=== PATIENT | female | born 1990 | race American Indian/Alaskan Native ===

== ENCOUNTER 2017-12-13 08:38 | Emergency (ER) | payer MEDICAID ==
[2017-12-13 08:54] VITALS: BMI 23.9
[2017-12-13 08:55] VITALS: TEMP 98.8
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
[2017-12-13 09:18] LABS: PH,URINE 7.5 (4.7-8.0); URINE BILIRUBIN NEGATIVE (NEGATIVE); URINE BLOOD NEGATIVE (NEGATIVE); URINE GLUCOSE (UA) NEGATIVE (NEGATIVE); URINE LEUKOCYTE ESTERASE NEGATIVE Leu/uL (NEGATIVE); URINE NITRATE NEGATIVE (NEGATIVE); URINE PROTEIN NEGATIVE mg/dL (<30 mg/dL); URINE UROBILINOGEN 0.2 E.U./dL (<1 E.U./dL)
[2017-12-13 09:26] LABS: URINE APPEARANCE CLEAR (CLEAR); URINE COLOR YELLOW (YELLOW)
[2017-12-13 09:27] LABS: HCG,QUALITATIVE URINE NEGATIVE (NEGATIVE)
[2017-12-13 09:30] LABS: BASO # 0.02 K/mm3 (0.0-2.0); BASO % 0.4 % (0.0-3.0); EOS # 0.1 (0.0-0.7); EOS % 1.1 % (1.5-5.0); GRAN # 1.95 (1.4-6.5); GRAN % 41.8 % (50.0-68.0); HEMOGLOBIN 12.9 g/dL (12.0-16.0); LYMPH # 2.3 (1.2-3.4); LYMPH % 48.5 % (22.0-35.0); MEAN CORPUSCULAR HEMOGLOBIN 29.5 pg (25.0-35.0); MEAN CORPUSCULAR HGB CONC 32.7 g/dl (31.0-37.0); MEAN PLATELET VOLUME 11.3 fl (7.0-11.0); MONO # 0.4 (0.1-0.6); MONO % 8.2 % (1.0-6.0); RBC 4.38 10^6/uL (3.5-6.1); RED CELL DISTRIBUTION WIDTH 14.6 % (11.5-14.5); WHITE BLOOD COUNT 4.7 10^3/ul (4.5-11.0)
[2017-12-13 09:38] LABS: BARBITURATES, UR NEGATIVE (NEGATIVE); BENZODIAZEPINES, UR NEGATIVE (NEGATIVE); OPIATES, UR NEGATIVE (NEGATIVE); PHENCYCLIDINE, UR NEGATIVE (NEGATIVE)
[2017-12-13 09:42] LABS: ALB/GLOB RATIO 1.4 (1.1-1.8); ALBUMIN 4.8 g/dL (3.0-4.8); ALT/SGPT 33 U/L (7-56); AST/SGOT 26 U/L (14-36); BLOOD UREA NITROGEN 14 mg/dL (7-21); CALCIUM 10.3 mg/dL (8.4-10.5); GFR AFRICAN-AMERICAN > 60; GFR NON-AFRICAN AMERICAN > 60
[2017-12-13 09:43] LABS: ACETAMINOPHEN < 10.0 ug/ml (10.0-20.0); SALICYLATE < 1 mg/dL (2.0-20.0)
--- NOTE | 2017-12-13 10:07 | CT ---
PROCEDURE: CT HEAD WITHOUT CONTRAST. HISTORY: KATE COMPARISON: None available. TECHNIQUE: Axial computed tomography images were obtained through the head/brain without intravenous contrast. Radiation dose: Total exam DLP = 769.33 mGy-cm. This CT exam was performed using one or more of the following dose reduction techniques: Automated exposure control, adjustment of the mA and/or kV according to patient size, and/or use of iterative reconstruction technique. FINDINGS: HEMORRHAGE: No intracranial hemorrhage. BRAIN: No mass effect or edema. No atrophy or chronic microvascular ischemic changes. VENTRICLES: Unremarkable. No hydrocephalus. CALVARIUM: Unremarkable. PARANASAL SINUSES: Unremarkable as visualized. No significant inflammatory changes. MASTOID AIR CELLS: Unremarkable as visualized. No inflammatory changes. OTHER FINDINGS: None. IMPRESSION: Normal CT of the Head. No intracranial mass, hemorrhage or evidence of acute infarct.
[2017-12-13 11:27] VITALS: BP 124/72; PULSE 84; RESP 16; O2SAT 19
--- NOTE | 2017-12-14 16:23 | CARD ---
APPROVED REPORT EKG Measurement Heart [id number] <Conclusion> Normal sinus rhythm with sinus arrhythmia Nonspecific ST abnormality Abnormal ECG
== END 2017-12-13 11:27 | disposition home or self-care (01) ==
LOC: MERGE 08:38 → ED 08:38
DX: F31.9 Bipolar disorder, unspecified (principal); G47.00 Insomnia, unspecified; R51 Headache

== ENCOUNTER 2018-11-18 09:48 | Emergency (ER) | payer MEDICAID, OTHER ==
[2018-11-18 09:58] VITALS: BMI 24.0
--- NOTE | 2018-11-18 10:56 | ED PDOC ---
Arrival/HPI <Monica Coley - Last Filed: 11/18/18 11:22> - General Historian: Patient - History of Present Illness Narrative History of Present Illness (Text): 11/18/18 10:49 28 y/o F with PMHx of bipolar disorder, anxiety presents to ED with complaints of occipital headache that's been ongoing for about 2 weeks since she received depo-provera shot. She reports headache is not the worst headache of her life. She denies trauma to the head. She denies any neurological symptoms including numbness, tingling, weakness. She also reports she was recently evaluated for thyroid problems. No suicidal or homicidal ideation. She denies fevers, chills, dizziness, chest pain, palpitations, shortness of breath, n/v/c/d/dysuria. Time/Duration: Prior to Arrival Symptom Onset: Gradual <Vignesh Orellana - Last Filed: 11/18/18 15:10> - General Chief Complaint: Headache Past Medical History - Provider Review Nursing Documentation Reviewed: Yes - Infectious Disease Hx of Infectious Diseases: None - Cardiac Hx Cardiac Disorders: No - Pulmonary Hx Respiratory Disorders: Yes Hx Asthma: Yes - Neurological Hx Neurological Disorder: No - HEENT Hx HEENT Disorder: No - Renal Hx Renal Disorder: No - Endocrine/Metabolic Hx Endocrine Disorders: No - Hematological/Oncological Hx Blood Disorders: No - Integumentary Hx Dermatological Disorder: No - Musculoskeletal/Rheumatological Hx Musculoskeletal Disorders: No - Gastrointestinal Hx Gastrointestinal Disorders: No - Genitourinary/Gynecological Hx Genitourinary Disorders: No - Psychiatric Hx Psychophysiologic Disorder: Yes Hx Anxiety: Yes Hx Bipolar Disorder: Yes Hx Depression: Yes Hx Substance Use: Yes - Anesthesia Hx Anesthesia: No - Suicidal Assessment Feels Threatened In Home Enviroment: No <Vignesh Orellana - Last Filed: 11/18/18 15:10> Family/Social History - Physician Review Nursing Documentation Reviewed: Yes Family/Social History: Unknown Family HX Smoking Status: Light Smoker < 10 Cigarettes Daily Hx Alcohol Use: No Hx Substance Use: Yes Substance used: marijuana <Vignesh Orellana - Last Filed: 11/18/18 15:10> Allergies/Home Meds <Moniac Coley - Last Filed: 11/18/18 11:22> <Vignesh Orellana - Last Filed: 11/18/18 15:10> Allergies/Adverse Reactions: Allergies No Known Allergies Allergy (Verified 11/18/18 09:58) Home Medications: Home Meds Medication Instructions Recorded Confirmed Paroxetine HCl [Paroxetine] 20 mg PO DAILY 05/18/15 06/30/17 ARIPiprazole [Abilify] 20 mg PO DAILY 01/26/16 06/30/17 Albuterol Sulfate [Proair 2 puff IH PRN PRN 01/26/16 06/30/17 Respiclick] Hydroxyzine Pamoate [Vistaril] 25 mg PO BID 01/26/16 06/30/17 Albuterol 0.083% [Albuterol 3 ml IH PRN PRN 06/30/17 06/30/17 Sulfate 3 Ml] Hydroxyzine Pamoate [Vistaril] 25 mg PO DAILY 12/13/17 12/13/17 Review of Systems - Review of Systems Constitutional: Normal Eyes: Normal ENT: Normal Respiratory: Normal Cardiovascular: Normal Gastrointestinal: Normal Genitourinary Female: Normal Musculoskeletal: Normal Skin: Normal Neurological: Headache. absent: Dizziness, Focal Weakness, Speech Changes, Seizure Endocrine: Normal Hemo/Lymphatic: Normal Psychiatric: Anxiety. absent: Suicidal Ideation <Vignesh Orellana - Last Filed: 11/18/18 15:10> Physical Exam Vital Signs Temp Pulse Resp BP Pulse Ox 11/18/18 10:02 98.4 F 71 18 104/57 L 99 <ColeyMonica - Last Filed: 11/18/18 11:22> Vital Signs Reviewed: Yes Vital Signs Temp Pulse Resp BP Pulse Ox 11/18/18 10:02 98.4 F 71 18 104/57 L 99 Temperature: Afebrile Blood Pressure: Normal Pulse: Regular Respiratory Rate: Normal Appearance: Positive for: Well-Appearing, Non-Toxic, Comfortable Pain Distress: None Mental Status: Positive for: Alert and Oriented X 3 - Systems Exam Head: Present: Atraumatic, Normocephalic Pupils: Present: PERRL Extroacular Muscles: Present: EOMI Conjunctiva: Present: Normal Mouth: Present: Moist Mucous Membranes Neck: Present: Normal Range of Motion Respiratory/Chest: Present: Clear to Auscultation, Good Air Exchange. No: Respiratory Distress, Accessory Muscle Use Cardiovascular: Present: Regular Rate and Rhythm, Normal S1, S2. No: Murmurs Abdomen: No: Tenderness, Distention, Peritoneal Signs Back: Present: Normal Inspection Upper Extremity: Present: Normal Inspection. No: Cyanosis, Edema Lower Extremity: Present: Normal Inspection. No: Edema Neurological: Present: GCS=15, CN II-XII Intact, Speech Normal Skin: Present: Warm, Dry, Normal Color. No: Rashes Psychiatric: Present: Anxious (tearful), Other (pressured speech. ). No: Normal Affect, Normal Mood, Delusional, Hallucinations <Vignesh Orellana - Last Filed: 11/18/18 15:10> Medical Decision Making ED Course and Treatment: 11/18/18 11:15 Impression: 28 year old female presents to ED with complaints of occipital headache that's been ongoing for about 2 weeks since she received depo-provera shot. In agreement with resident note which contains more details about the patient. Patient seen and evaluated with resident. Came up with plan and treatment together. Plan: -- Labs -- Urinalysis <Monica Coley - Last Filed: 11/18/18 11:22> ED Course and Treatment: 11/18/18 11:01 Impression: 28 y/o F with PMHx of bipolar disorder, anxiety presents to ED with complaints of headache and anxiety. Prior notes and results have been reviewed Differential diagnosis includes but is not limited to: Bipolar disorder Anxiety Plan: Labs U/A [facility] psychiatry eval Progress Notes: <Vignesh Orellana - Last Filed: 11/18/18 15:10> - PA / POLITICAL RESEARCH SCIENTIST / Resident Statement MD/ has reviewed & agrees with the documentation as recorded. - Scribe Statement The provider has reviewed the documentation as recorded by the Scribe Leslie Campbell All medical record entries made by the Scribe were at my direction and personally dictated by me. I have reviewed the chart and agree that the record accurately reflects my personal performance of the history, physical exam, medical decision making, and the department course for this patient. I have also personally directed, reviewed, and agree with the discharge instructions and disposition. <Monica Coley - Last Filed: 11/18/18 11:22> Disposition/Present on Arrival <Monica Coley - Last Filed: 11/18/18 11:22> - Present on Arrival Any Indicators Present on Arrival: No History of DVT/PE: No History of Uncontrolled Diabetes: No Urinary Catheter: No History of Decub. Ulcer: No History Surgical Site Infection Following: None - Disposition Have Diagnosis and Disposition been Completed?: Yes Disposition Time: 15:00 <EstebanJosecalvin - Last Filed: 11/18/18 15:10> - Disposition Diagnosis: PTSD (post-traumatic stress disorder), Bipolar disorder, Headache Disposition: HOME/ ROUTINE Patient Problems: Current Active Problems Problem Status Onset PTSD (post-traumatic stress disorder) Acute Bipolar disorder Acute Condition: GOOD Discharge Instructions (ExitCare): Bipolar Disorder (DC), Post-traumatic Stress Disorder (DC), Headache, Adult (DC) Additional Instructions: Please visit the following service within 2 days of discharge from the hospital: [facility] Contact: [place] [phone] Caroline Pyle,thank you for letting us take care of you today. The emergency medical care you received today was directed at your acute symptoms. If you were prescribed any medication, please fill it and take as directed. It may take several days for your symptoms to resolve. Return to the Emergency Department if your symptoms worsen, do not improve, or if you have any other problems. Please contact your doctor or call one of the physicians/clinics you have been referred to that are listed on the Patient Visit Information form that is included in your discharge packet. Bring any paperwork you were given at discharge with you along with any medications you are taking to your follow up visit. Our treatment cannot replace ongoing medical care by a primary care provider outside of the emergency department. Thank you for allowing the [facility] team to be part of your care today. Prescriptions: Hydroxyzine HCl 25 mg PO BID PRN #20 tablet PRN Reason: Anxiety Forms: [employer] (Libyan)
[2018-11-18 11:23] LABS: URINE BILIRUBIN NEGATIVE (NEGATIVE); URINE BLOOD NEGATIVE (NEGATIVE); URINE GLUCOSE (UA) NEGATIVE (NEGATIVE); URINE LEUKOCYTE ESTERASE NEGATIVE Leu/uL (NEGATIVE); URINE PROTEIN NEGATIVE mg/dL (<30 mg/dL); URINE UROBILINOGEN 0.2 E.U./dL (<1 E.U./dL)
[2018-11-18 11:32] LABS: URINE APPEARANCE CLEAR (CLEAR); URINE COLOR YELLOW (YELLOW)
[2018-11-18 11:51] LABS: BASO # 0.01 K/mm3 (0.0-2.0); BASO % 0.2 % (0.0-3.0); EOS % 0.3 % (1.5-5.0); GRAN # 3.85 (1.4-6.5); GRAN % 58.7 % (50.0-68.0); HEMOGLOBIN 11.9 g/dL (12.0-16.0); LYMPH # 2.3 (1.2-3.4); LYMPH % 34.5 % (22.0-35.0); MEAN CELL VOLUME 87.6 fl (80.0-105.0); MEAN CORPUSCULAR HEMOGLOBIN 29.6 pg (25.0-35.0); MEAN CORPUSCULAR HGB CONC 33.8 g/dl (31.0-37.0); MEAN PLATELET VOLUME 10.4 fl (7.0-11.0); MONO # 0.4 (0.1-0.6); MONO % 6.3 % (1.0-6.0); RBC 4.02 10^6/uL (3.5-6.1); RED CELL DISTRIBUTION WIDTH 13.7 % (11.5-14.5); WHITE BLOOD COUNT 6.6 10^3/uL (4.5-11.0)
[2018-11-18 11:57] LABS: ALB/GLOB RATIO 1.4 (1.1-1.8); ALBUMIN 4.6 g/dL (3.0-4.8); ALT/SGPT 40 U/L (7-56); AST/SGOT 38 U/L (14-36); BLOOD UREA NITROGEN 12 mg/dL (7-21); CALCIUM 10.2 mg/dL (8.4-10.5); GFR NON-AFRICAN AMERICAN > 60
[2018-11-18 11:57] LABS: BARBITURATES, UR NEGATIVE (NEGATIVE); BENZODIAZEPINES, UR NEGATIVE (NEGATIVE); OPIATES, UR NEGATIVE (NEGATIVE); PHENCYCLIDINE, UR NEGATIVE (NEGATIVE)
[2018-11-18 12:02] LABS: ACETAMINOPHEN < 10.0 ug/ml (10.0-20.0); SALICYLATE < 1 mg/dL (2.0-20.0)
[2018-11-18 15:10] VITALS: BP 110/66; PULSE 78; RESP 16; TEMP 98.6; O2SAT 97
== END 2018-11-18 15:19 | disposition home or self-care (01) ==
LOC: ED 09:48
DX: R51 Headache (principal); F31.9 Bipolar disorder, unspecified; F43.10 Post-traumatic stress disorder, unspecified; F17.210 Nicotine dependence, cigarettes, uncomplicated

== ENCOUNTER 2019-02-22 14:05 | Emergency (ER) | payer OTHER ==
[2019-02-22 14:29] VITALS: RESP 18; TEMP 98.1; BMI 23.6
[2019-02-22] MEDS ORDERED: DiphenhydrAMINE 50 mg/ml Inj IVP STA (15:28)
[2019-02-22] MEDS ORDERED: Sodium Chloride 0.9% 1,000 ML IV STA (15:28)
--- NOTE | 2019-02-22 15:42 | ED PDOC ---
Arrival/HPI - General Chief Complaint: Abnormal Skin Integrity Time Seen by Provider: 02/22/19 14:09 Historian: Patient - History of Present Illness Narrative History of Present Illness (Text): 02/22/19 15:27 29 year old female, with a past medical history of gastritis, strep throat, and asthma, who presents to the emergency department complaining of facial rash x 2 days ago. Patient reports she ate lobster 1 week ago and noticed her face became oily the day after and "bumps" on her face 2 days ago. Patient denies change in soaps, detergent or medications. Patient endorses difficulty swallowing "for a while" and states her throat "feels like it has a lump". Patient reports she had a sinus infection, which she was initially prescribed amoxicillin, but then changed to bactrim by her ENT physician, Dr. Yadav because amoxicillin was not effective. She denies sob, but does c/o nasal congestion. She denies any steroid usage. She also denies any fevers, chills, nausea, vomiting, headaches, dizziness, chest pain, or any other complaints. Patient reports LNMP was 1 week ago. Time/Duration: < week Symptom Onset: Gradual Symptom Course: Unchanged Activities at Onset: Light Context: Home Past Medical History - Provider Review Nursing Documentation Reviewed: Yes - Infectious Disease Hx of Infectious Diseases: None - Cardiac Hx Hypertension: No - Pulmonary Hx Respiratory Disorders: Yes Hx Asthma: Yes (NO meds) - Neurological Hx Seizures: No - HEENT Hx HEENT Disorder: No - Renal Hx Renal Disorder: No - Endocrine/Metabolic Hx Endocrine Disorders: No - Hematological/Oncological Hx Blood Disorders: No - Integumentary Hx Dermatological Disorder: No - Musculoskeletal/Rheumatological Hx Musculoskeletal Disorders: No - Gastrointestinal Hx Gastrointestinal Disorders: Yes Hx Gastroesophageal Reflux: Yes - Genitourinary/Gynecological Hx Sexually Transmitted Diseases: No - Psychiatric Hx Psychophysiologic Disorder: Yes Hx Anxiety: Yes Hx Bipolar Disorder: Yes Hx Depression: Yes Hx Post Traumatic Stress Disorder: Yes Hx Substance Use: No (DENIES 12/06/18) - Anesthesia Hx Anesthesia: No - Suicidal Assessment Feels Threatened In Home Enviroment: No Family/Social History - Physician Review Nursing Documentation Reviewed: Yes Family/Social History: Unknown Family HX Smoking Status: Former Smoker Hx Alcohol Use: No Hx Substance Use: No (DENIES 12/06/18) Substance used: marijuana Allergies/Home Meds Allergies/Adverse Reactions: Allergies shellfish derived Allergy (Verified 02/22/19 14:12) RASH medroxyprogesterone [From Depo-Provera] Adverse Reaction (Verified 02/22/19 14:12) SHORTNESS OF BREATH Home Medications: Home Meds Medication Instructions Recorded Confirmed Fluticasone Propionate [Armonair 232 mcg IH BID 01/14/19 01/29/19 Respiclick] Fluticasone Nasal [Flonase] 1 spr NS DAILY 01/29/19 01/29/19 Loratadine [Claritin] 10 mg PO DAILY 01/29/19 01/29/19 Review of Systems - Physician Review All systems were reviewed & negative as marked: Yes - Review of Systems Constitutional: absent: Fatigue, Fevers ENT: Sore Throat, Sinus Congestion Respiratory: absent: SOB, Cough, Sputum, Wheezing Cardiovascular: absent: Chest Pain, Palpitations Gastrointestinal: absent: Abdominal Pain, Diarrhea, Nausea, Vomiting Genitourinary Female: absent: Dysuria, Hematuria Musculoskeletal: absent: Arthralgias, Back Pain, Neck Pain Skin: Rash, Pruritis Neurological: absent: Headache, Dizziness Psychiatric: absent: Anxiety, Depression, Suicidal Ideation Physical Exam Vital Signs Reviewed: Yes Vital Signs Temp Pulse Resp BP Pulse Ox 02/22/19 14:05 98.1 F 72 18 113/75 100 Temperature: Afebrile Blood Pressure: Normal Pulse: Regular Respiratory Rate: Normal Appearance: Positive for: Well-Appearing, Non-Toxic, Comfortable Pain Distress: None Mental Status: Positive for: Alert and Oriented X 3 - Systems Exam Head: Present: Atraumatic, Normocephalic, Other (sporadic erythema papules noted to cheeks and forehead. ) Pupils: Present: PERRL Extroacular Muscles: Present: EOMI Conjunctiva: Present: Normal Ears: Present: Normal, NORMAL TM Mouth: Present: Moist Mucous Membranes, Normal Lips, Normal Tounge, Normal Teeth, Other (airway patent). No: Drooling, Trismus Pharnyx: Present: Normal. No: ERYTHEMA, EXUDATE, TONSILS ENLARGED, Peritonsilar Swelling, Uvular Deviation, Muffled/Hoarse Voice, Strider, Soft Palate/Uvular Edema Nose (External): Present: Atraumatic Nose (Internal): Present: Engorged, Clear Mucous Neck: Present: Normal Range of Motion. No: Lymphadenopathy Respiratory/Chest: Present: Clear to Auscultation, Good Air Exchange. No: Respiratory Distress, Accessory Muscle Use Cardiovascular: Present: Regular Rate and Rhythm, Normal S1, S2. No: Murmurs Abdomen: No: Tenderness, Distention, Peritoneal Signs Back: Present: Normal Inspection Upper Extremity: Present: Normal Inspection. No: Cyanosis, Edema Lower Extremity: Present: Normal Inspection. No: Edema Neurological: Present: GCS=15, Speech Normal Skin: Present: Warm, Dry, Normal Color. No: Rashes Psychiatric: Present: Alert, Oriented x 3, Normal Concentration Medical Decision Making ED Course and Treatment: 02/22/19 15:25 Impression: 29 year old female presents to the emergency department complaining of facial rash x 2 days with feeling of throat tightness. pt is currently on bactrim prescribed by ENT. Plan: -- CT neck -- Labs -- Pepcid -- Benadryl -- IV fluids -- SOLU-medrol -- Review and reassess Prior Visits: Notes and results from previous visits were reviewed. Progress Notes: pt is non toxic well appearing; no distress. stable vitals. cbc: wnl cmp; wnl CT neck: FINDINGS: NASOPHARYNX: Unremarkable. SUPRAHYOID NECK: Unremarkable oropharynx, oral cavity, parapharyngeal space and retropharyngeal space. The tonsillar pillars do not appear significantly enlarged. No contour abnormalities suggest a moderately large size abscess. Lack of intravenous contrast limits interpretation. INFRAHYOID NECK: Unremarkable larynx, hypopharynx, and supraglottic space. Vocal cords intact. MASS: None. GLANDS: Parotid and submandibular glands unremarkable. Normal size thyroid gland, without nodule. LYMPH NODES: Normal. No lymphadenopathy. CERVICAL SPINE: No fracture or focal lesion. OTHER FINDINGS: Or pharyngeal airway widely patent as well as the visualized upper mid trachea. IMPRESSION: Unremarkable non-contrast enhanced CT of the neck. 02/22/19 18:36 Patient reassessment: Patient is nontoxic well-appearing in no distress with stable vital signs feeling better after medications. I discussed all results in depth with the patient and advised to follow-up with a air conditioning service technician and primary care physician within the next 2 days. I have also advised follow-up with ENT specialist. I advised me to return if symptoms worsen or persist or if new concerning symptoms develop I advised taking Benadryl every 6 hours as needed for itch, as well as prednisone daily x4 days and pepcid daily. Advised patient to follow up with primary care physician within the next 2 days and return if symptoms worsen persist or if new symptoms develop All aspects of this case were discussed the attending of record. Impression :Allergic reaction Benadryl every 6 hours as needed for itch Prednisone once daily x4 days Pepcid one tablet daily Follow up with the primary care physician within the next 2 days Follow-up with ENT specialist within the next 2 days Follow-up with a air conditioning service technician within the next 2 days Return if symptoms worsen persist or if new symptoms develop: Shortness of breath, feeling of throat closing, difficulty speaking or any other concerning symptoms develop 02/22/19 19:47 Reassessment Condition: Re-examined, Improved - PA / APPLICATION SERVICES MANAGER / Resident Statement / has reviewed & agrees with the documentation as recorded. MD/ has examined the patient and agrees with the treatment plan. - Scribe Statement The provider has reviewed the documentation as recorded by the Chacorta Coon Provider Scribe Attestation: All medical record entries made by the Chacorta were at my direction and personally dictated by me. I have reviewed the chart and agree that the record accurately reflects my personal performance of the history, physical exam, medical decision making, and the department course for this patient. I have also personally directed, reviewed, and agree with the discharge instructions and disposition. Disposition/Present on Arrival - Present on Arrival Any Indicators Present on Arrival: No History of DVT/PE: No History of Uncontrolled Diabetes: No Urinary Catheter: No History of Decub. Ulcer: No History Surgical Site Infection Following: None - Disposition Have Diagnosis and Disposition been Completed?: Yes Diagnosis: Allergic reaction Disposition: HOME/ ROUTINE Disposition Time: 16:43 Patient Plan: Discharge Condition: GOOD Discharge Instructions (ExitCare): Food Allergy, Skin Rash (DC) Additional Instructions: Benadryl every 6 hours as needed for itch Prednisone once daily x4 days Pepcid one tablet daily Follow up with the primary care physician within the next 2 days Follow-up with ENT specialist within the next 2 days Follow-up with a air conditioning service technician within the next 2 days Return if symptoms worsen persist or if new symptoms develop: Shortness of breath, feeling of throat closing, difficulty speaking or any other concerning symptoms develop Prescriptions: DiphenhydrAMINE [Benadryl] 25 mg PO Q6H #20 cap Famotidine [Pepcid] 20 mg PO DAILY #30 tab predniSONE [predniSONE Tab] 2 tab PO DAILY #8 tab Referrals: Srikanth Norris MD [Staff Provider] - Follow up with primary Florence Cordova MD [Medical Doctor] - Follow up with primary Lance Reynolds DO [Staff Provider] - Follow up with primary Forms: [facility] (Tajik), WORK NOTE
[2019-02-22 16:08] LABS: BASO # 0.01 K/mm3 (0.0-2.0); BASO % 0.2 % (0.0-3.0); EOS % 0.3 % (1.5-5.0); HEMOGLOBIN 12.5 g/dL (12.0-16.0); LYMPH # 2.4 (1.2-3.4); LYMPH % 41.4 % (22.0-35.0); MEAN CELL VOLUME 90.7 fl (80.0-105.0); MEAN CORPUSCULAR HEMOGLOBIN 29.7 pg (25.0-35.0); MEAN CORPUSCULAR HGB CONC 32.7 g/dl (31.0-37.0); MONO # 0.3 (0.1-0.6); MONO % 4.5 % (1.0-6.0); RBC 4.21 10^6/uL (3.5-6.1); WHITE BLOOD COUNT 5.8 10^3/uL (4.5-11.0)
[2019-02-22 16:20] LABS: ALB/GLOB RATIO 1.3 (1.1-1.8); ALT/SGPT 21 U/L (7-56); AST/SGOT 28 U/L (14-36); BLOOD UREA NITROGEN 13 mg/dL (7-21); GFR NON-AFRICAN AMERICAN > 60
[2019-02-22 16:24] VITALS: BP 118/74; PULSE 81; O2SAT 100
--- NOTE | 2019-02-22 18:18 | CT ---
Date of service: 02/22/2019 PROCEDURE: CT NECK WITHOUT CONTRAST HISTORY: throat feels tight,difficulty speaking hx of strep COMPARISON: None available. TECHNIQUE: CT of the neck without intravenous contrast. Coronal and sagittal reformats generated. Radiation dose: Total exam DLP = 376.85 mGy-cm. This CT exam was performed using one or more of the following dose reduction techniques: Automated exposure control, adjustment of the mA and/or kV according to patient size, and/or use of iterative reconstruction technique. FINDINGS: NASOPHARYNX: Unremarkable. SUPRAHYOID NECK: Unremarkable oropharynx, oral cavity, parapharyngeal space and retropharyngeal space. The tonsillar pillars do not appear significantly enlarged. No contour abnormalities suggest a moderately large size abscess. Lack of intravenous contrast limits interpretation. INFRAHYOID NECK: Unremarkable larynx, hypopharynx, and supraglottic space. Vocal cords intact. MASS: None. GLANDS: Parotid and submandibular glands unremarkable. Normal size thyroid gland, without nodule. LYMPH NODES: Normal. No lymphadenopathy. CERVICAL SPINE: No fracture or focal lesion. OTHER FINDINGS: Or pharyngeal airway widely patent as well as the visualized upper mid trachea. IMPRESSION: Unremarkable non-contrast enhanced CT of the neck.
== END 2019-02-22 18:51 | disposition home or self-care (01) ==
LOC: ED 14:05
DX: T78.40XA Allergy, unspecified, initial encounter (principal); Z87.891 Personal history of nicotine dependence; F31.9 Bipolar disorder, unspecified
CPT/HCPCS: 70490; 80053; 81025; 85025; 96374; 96375; 99284; J1200; J2930; J7030

== ENCOUNTER 2019-04-01 18:47 | Emergency (ER) | payer OTHER ==
[2019-04-01 18:48] VITALS: BMI 23.9
[2019-04-01 19:12] VITALS: RESP 18
[2019-04-01 21:20] VITALS: BP 122/72; PULSE 82; TEMP 98.2; O2SAT 98
--- NOTE | 2019-04-01 21:20 | ED PDOC ---
Arrival/HPI - General Chief Complaint: Anxiety Time Seen by Provider: 04/01/19 19:13 Historian: Patient - History of Present Illness Narrative History of Present Illness (Text): 04/01/19 19:25 Caroline Pyle is a 29 year old female, whose past medical history includes sinusitis, GERD, and asthma, who presents to the ED complaining of anxiety. Patient states she has been experiencing persistent nasal congestion/post-nasal drip for which she is scheduled for sinus surgery in 2 weeks. Patient states she began feeling increasingly anxious this evening as her nasal congestion makes it difficult to breath. Patient denies any cough, chest pain, abdominal pain, nausea, vomiting, headache, dizziness, or any other complaints. Symptom Onset: Gradual Symptom Course: Unchanged Activities at Onset: Light Context: Home Past Medical History - Provider Review Nursing Documentation Reviewed: Yes - Infectious Disease Hx of Infectious Diseases: None - Cardiac Hx Hypertension: No - Pulmonary Hx Respiratory Disorders: Yes Hx Asthma: Yes (NO meds) - Neurological Hx Seizures: No - HEENT Hx HEENT Disorder: No - Renal Hx Renal Disorder: No - Endocrine/Metabolic Hx Endocrine Disorders: No - Hematological/Oncological Hx Blood Disorders: No - Integumentary Hx Dermatological Disorder: No - Musculoskeletal/Rheumatological Hx Musculoskeletal Disorders: No - Gastrointestinal Hx Gastrointestinal Disorders: Yes Hx Gastroesophageal Reflux: Yes - Genitourinary/Gynecological Hx Sexually Transmitted Diseases: No - Psychiatric Hx Psychophysiologic Disorder: Yes Hx Anxiety: Yes Hx Bipolar Disorder: Yes Hx Depression: Yes Hx Post Traumatic Stress Disorder: Yes Hx Substance Use: No (DENIES 12/06/18) - Anesthesia Hx Anesthesia: No - Suicidal Assessment Feels Threatened In Home Enviroment: No Family/Social History - Physician Review Nursing Documentation Reviewed: Yes Family/Social History: Unknown Family HX Smoking Status: Former Smoker Hx Alcohol Use: No Hx Substance Use: No (DENIES 12/06/18) Substance used: marijuana Allergies/Home Meds Allergies/Adverse Reactions: Allergies shellfish derived Allergy (Verified 02/22/19 14:12) RASH medroxyprogesterone [From Depo-Provera] Adverse Reaction (Verified 02/22/19 14:12) SHORTNESS OF BREATH Home Medications: Home Meds Medication Instructions Recorded Confirmed Fluticasone Propionate [Armonair 232 mcg IH BID 01/14/19 01/29/19 Respiclick] Fluticasone Nasal [Flonase] 1 spr NS DAILY 01/29/19 01/29/19 Loratadine [Claritin] 10 mg PO DAILY 01/29/19 01/29/19 Review of Systems - Physician Review All systems were reviewed & negative as marked: Yes - Review of Systems Constitutional: Normal. absent: Fevers Eyes: Normal ENT: Normal Respiratory: Normal. absent: SOB, Cough Cardiovascular: Normal. absent: Chest Pain Gastrointestinal: Normal. absent: Abdominal Pain, Diarrhea, Nausea, Vomiting Genitourinary Female: Normal. absent: Dysuria, Frequency, Hematuria, Urine Output Changes Musculoskeletal: Normal. absent: Back Pain, Neck Pain Skin: Normal. absent: Rash Neurological: Normal. absent: Headache, Dizziness Endocrine: Normal Hemo/Lymphatic: Normal Psychiatric: Anxiety Physical Exam Vital Signs Reviewed: Yes Vital Signs Temp Pulse Resp BP Pulse Ox 04/01/19 21:13 98.2 F 82 18 122/72 98 04/01/19 18:48 98.8 F 79 18 117/79 99 Temperature: Afebrile Blood Pressure: Normal Pulse: Regular Respiratory Rate: Normal Appearance: Positive for: Well-Appearing, Non-Toxic, Comfortable Pain Distress: None Mental Status: Positive for: Alert and Oriented X 3 - Systems Exam Head: Present: Atraumatic, Normocephalic Pupils: Present: PERRL Extroacular Muscles: Present: EOMI Conjunctiva: Present: Normal Mouth: Present: Moist Mucous Membranes Neck: Present: Normal Range of Motion Respiratory/Chest: Present: Clear to Auscultation, Good Air Exchange. No: Respiratory Distress, Accessory Muscle Use Cardiovascular: Present: Regular Rate and Rhythm, Normal S1, S2. No: Murmurs Abdomen: No: Tenderness, Distention, Peritoneal Signs Back: Present: Normal Inspection Upper Extremity: Present: Normal Inspection. No: Cyanosis, Edema Lower Extremity: Present: Normal Inspection. No: Edema Neurological: Present: GCS=15, CN II-XII Intact, Speech Normal Skin: Present: Warm, Dry, Normal Color. No: Rashes Psychiatric: Present: Alert, Oriented x 3, Normal Insight, Normal Concentration Medical Decision Making ED Course and Treatment: 04/01/19 19:25 Impression: 29 year old female complaining of anxiety. Plan: -- Ativan -- Reassess and disposition Prior Visits: Notes and results from previous visits were reviewed. Progress Notes: - Medication Orders Current Medication Orders: Discontinued Medications Lorazepam (Ativan) 0.5 mg PO ONCE ONE; Protocol Stop: 04/01/19 19:30 Last Admin: 04/01/19 19:38 Dose: 0.5 mg - Scribe Statement The provider has reviewed the documentation as recorded by the Chacorta Lakhani Provider Scribe Attestation: All medical record entries made by the Scribrina were at my direction and personally dictated by me. I have reviewed the chart and agree that the record accurately reflects my personal performance of the history, physical exam, medical decision making, and the department course for this patient. I have also personally directed, reviewed, and agree with the discharge instructions and disposition. Disposition/Present on Arrival - Present on Arrival Any Indicators Present on Arrival: No History of DVT/PE: No History of Uncontrolled Diabetes: No Urinary Catheter: No History of Decub. Ulcer: No History Surgical Site Infection Following: None - Disposition Have Diagnosis and Disposition been Completed?: Yes Diagnosis: Anxiety Disposition: HOME/ ROUTINE Disposition Time: 21:15 Condition: IMPROVED Discharge Instructions (ExitCare): Anxiety, Adult (DC) Prescriptions: Lorazepam [Ativan] 0.5 mg PO HS #3 tab [facility]errals[facility] - Follow up with primary Forms: [employer] (Burmese)
== END 2019-04-01 21:19 | disposition home or self-care (01) ==
LOC: ED 18:47
DX: F41.9 Anxiety disorder, unspecified (principal); F31.9 Bipolar disorder, unspecified; F43.10 Post-traumatic stress disorder, unspecified